=== PATIENT | male | born 1990 | race African-American/Black ===

== ENCOUNTER 2024-06-15 18:24 | Emergency (ER) | payer OTHER ==
[~2024-06-15] VITALS: Ht 172.7 cm; Wt 84.0 kg
[2024-06-15] MEDS: LIDOcaine 1% 30ml preserv. free vial IJ ONE (21:28)
[2024-06-15] MEDS ORDERED: SULF1TAB49 PO (23:27)
[2024-06-15 23:34] VITALS: BP 142/96; PULSE 86; RESP 16; TEMP 98.6; O2SAT 99
== END 2024-06-15 23:36 | disposition home or self-care (01) ==
LOC: ER 18:25
DX: S68.111A Complete traumatic metacarpophalangeal amputation of left index finger, initial encounter (principal); X58.XXXA Exposure to other specified factors, initial encounter; Y93.89 Activity, other specified; Y92.89 Other specified places as the place of occurrence of the external cause; Y99.8 Other external cause status
CPT/HCPCS: 12001; 26951; 73140; 99284; J7030; 99283; A6449

== ENCOUNTER 2024-06-18 10:52 | Emergency (ER) | payer OTHER ==
[~2024-06-18] VITALS: Ht 172.7 cm; Wt 84.0 kg
[~2024-06-18 10:52] MED LIST: SULF1TAB49 PO
[2024-06-18 10:58] VITALS: BP 126/74; PULSE 59; TEMP 97.8; O2SAT 100
[2024-06-18] MEDS ORDERED: OXYC-145 PO (11:25)
[2024-06-18 11:31] VITALS: RESP 16
[2024-06-18] MEDS: oxyCODONE IR 5mg (immed. release) tablet PO ONE (11:31)
== END 2024-06-18 11:30 | disposition home or self-care (01) ==
LOC: ER 10:53
DX: S68.111D Complete traumatic metacarpophalangeal amputation of left index finger, subsequent encounter (principal); Z79.899 Other long term (current) drug therapy; X58.XXXD Exposure to other specified factors, subsequent encounter
CPT/HCPCS: 29130; 99283; A6222